=== PATIENT | female | born 1975 | race Caucasian/White ===

== ENCOUNTER 2017-03-19 19:39 | Emergency (ER) | payer OTHER ==
[~2017-03-19] VITALS: Ht 172.7 cm; Wt 83.9 kg
[~2017-03-19 19:39] MED LIST: ESTR1TAB24; FLUO40CA12; HC2.5C30 TOP; IBUP-15; LISD50CA2 PO; NAPR-243; XANAX
[2017-03-19] MEDS ORDERED: FLUO20CA42 PO (20:26)
--- NOTE | 2017-03-19 20:40 | ED Lower Extremity ---
General Chief Complaint: Lower Extremity Stated Complaint: L FOOT INJ Nursing Triage Note: to ED 5 by wheelchair with reports of left foot injury after kicking her house while being mad. Denies any other injury. Nursing Sepsis Screen: No Definite Risk Source: patient History of Present Illness Time seen by provider: 20:20 Initial Comments PT ARRIVES VIA POV FROM HOME C/O LEFT FOOT INJURY STATES SHE WAS ANGRY AND KICKED HER HOUSE WITH HER LEFT FOOT. WAS WEARING "FLIP FLOPS" AT THE TIME C/O PAIN TO DORSUM OF LEFT FOOT NO PRIOR INJURY TO THIS FOOT NO PARESTHESIAS OR MOTOR DEFICITS PCP: [facility] Allergies and Home Medications Allergies Coded Allergies: Penicillins (Unverified Allergy, Mild, HIVES, 12/30/09) Home Medications Fluoxetine HCl 20 Mg Capsule, 20 MG PO DAILY, (Reported) Naproxen 500 Mg Tablet, 500 MG PO BID, #20 Prescribed by: OLESYA SAAVEDRA on 03/19/172101 Constitutional: no symptoms reported Musculoskeletal: see HPI Skin: no symptoms reported Psychiatric/Neurological: No Symptoms Reported Past Sfafyui-Glhzqf-Cdfuam Hx Patient Social History Alcohol Use: Occasionally Uses Recreational Drug Use: No Smoking Status: Current Everyday Smoker Type Used: Cigarettes 2nd Hand Smoke Exposure: Yes Recent Foreign Travel: No Contact w/Someone Who Travel: No Recent Infectious Disease Expo: No Recent Hopitalizations: No Immunizations Up To Date Tetanus Booster (TDap): Less than 5yrs Seasonal Allergies Seasonal Allergies: Yes Surgeries HX Surgeries: Yes Surgeries: Abdominal, Hysterectomy Respiratory Hx Respiratory Disorders: No Cardiovascular Hx Cardiac Disorders: No Neurological Hx Neurological Disorders: No Reproductive System Hx Reproductive Disorders: Yes (ENDOMETRIOSIS) Sexually Transmitted Disease: No Female Reproductive Disorders: Endometriosis [employer] History: Hysterectomy Genitourinary Hx Genitourinary Disorders: No Gastrointestinal Hx Gastrointestinal Disorders: No Musculoskeletal Hx Musculoskeletal Disorders: No Endocrine Hx Endocrine Disorders: No HEENT HX ENT Disorders: No Cancer Hx Cancer: No Psychosocial Hx Psychiatric Problems: Yes Behavioral Health Disorders: Depression Blood Transfusions Hx Blood Disorders: No Physical Exam Vital Signs Vital Sign - Last 12Hours 03/19/17 20:20 Temp 98.5 Pulse 104 Resp 18 B/P (MAP) 125/93 Pulse Ox 94 O2 Delivery Room Air Capillary Refill : Less Than 3 Seconds General Appearance: WD/WN, no apparent distress, other (REEKS OF CIGARETTES) Legs: left leg normal inspection Knees: left knee normal inspection Ankles: left ankle normal inspection Feet: left foot other (TENDERNESS TO DORSUM OF LEFT FOOT. NO SWELLING, NO BRUISING OR EXTERNAL EVIDENCE OF TRAUMA. DISTAL MOTOR/SENSORY/VASCULAR INTACT. ) Neurologic/Tendon: normal sensation, normal motor functions, normal tendon functions Neurologic/Psychiatric: founder president and ceo II-XII nml as tested, no motor/sensory deficits, alert, normal mood/affect, oriented x 3, abnormal cerebellar tests Skin: normal color, warm/dry Splinting and Joint Reduction : Splints: Post Op Shoe Progress/Results/Core Measures Results/Orders My Orders Orders - OLESYA SAAVEDRA DO Foot, Left, 3 Views (03/19/17 20:22) Post-Op Shoe (03/19/17 21:00) Rx-Naproxen (Rx-Naprosyn) (03/19/17 21:01) Rx-Naproxen (Rx-Naprosyn) (03/19/17 21:15) Vital Signs/I&O Vital Sign - Last 12Hours 03/19/17 03/19/17 20:20 21:22 Temp 98.5 98.5 Pulse 104 96 Resp 18 18 B/P (MAP) 125/93 Pulse Ox 94 95 O2 Delivery Room Air Blood Pressure Mean: 104 Diagnostic Imaging Comments XRAYS LEFT FOOT--NO ACUTE PROCESS, PENDING RADIOLOGIST REVIEW Departure Impression Impression: Primary Impression: Contusion of left foot, initial encounter Disposition: 01 HOME, SELF-CARE Condition: Stable Departure-Patient Inst. Referrals: [facility] (PCP/Family) Primary Care Physician Patient Instructions: Contusion (DC) Add. Discharge Instructions: ICE TO AREA AT 20 MINUTE INTERVALS WEAR POST OP SHOE NEEDED FOR COMFORT ELEVATE FOOT MUCH POSSIBLE ACTIVITIES TOLERATED FOLLOW UP WITH YOUR DR IN 1 WEEK IF NO BETTER All discharge instructions reviewed with patient and/or family. Voiced understanding. Scripts Naproxen (Naproxen) 500 Mg Tablet 500 MG PO BID, #20 TAB Prov: OLESYA SAAVEDRA DO 03/19/17 OLESYA SAAVEDRA DO March 19, 2017 20:40
[2017-03-19] MEDS ORDERED: RX-NAPROXEN (NAPROSYN) 250 MG TAB PPK#4 PO STA (21:01)
[2017-03-19] MEDS ORDERED: NAPR500T3 PO (21:02)
[2017-03-19] MEDS ORDERED: RX-NAPROXEN (NAPROSYN) 250 MG TAB PPK#4 PO ONE (21:15)
--- NOTE | 2017-03-19 21:15 | Diagnostic Imaging Report ---
INDICATION: Patient kicked house today, pain in the lateral side of the left foot COMPARISON STUDIES: None FINDINGS: 3 views of the left foot demonstrate normal ossification. No fracture or dislocation is present. IMPRESSION: Negative left foot. Dictated by: Dictated on workstation # [id number]
[2017-03-19 21:22] VITALS: BP 122/88
== END 2017-03-19 21:21 | disposition home or self-care (01) ==
LOC: EDUNIT# 19:39 → ER 19:41
DX: S90.32XA Contusion of left foot, initial encounter (principal); F17.210 Nicotine dependence, cigarettes, uncomplicated; W22.09XA Striking against other stationary object, initial encounter; Y92.009 Unspecified place in unspecified non-institutional (private) residence as the place of occurrence of the external cause; Y99.8 Other external cause status
CPT/HCPCS: 73630; 99283